=== PATIENT | female | born 1970 | race Caucasian/White ===

== ENCOUNTER 2022-12-24 15:14 | Outpatient (OUT) | payer BC, SELFPAY ==
--- NOTE | 2022-12-24 | XR_ITS ---
The [address] [address] Patient Name: YVONNE CRABTREE MRN: [id number] date: 1970 Sex: F Assigned Patient Location: [facility] Current Patient Location: CT Accession/Order Number: [id number] Exam Date: 12/24/2022 15:22 Report Date: 12/25/2022 15:51 At the request of: VLADIMIR WALDEN Procedure: XR foot RT min 3V STUDY: XR foot RT min 3V, [id number] HISTORY: RIGHT FOOT PAIN COMPARISON: CT of the foot 12/25/2022. 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 Differential includes septic arthritis, rheumatoid arthritis, and atypical posttraumatic changes. Status post bunionectomy. Mild osteoarthritis at the first metatarsophalangeal joint. Small plantar calcaneal spur and mild Achilles insertional calcification. Electronically authenticated by: KELLY NUNEZ Date: 12/25/2022 15:51
== END 2022-12-24 15:15 | disposition home or self-care (01) ==
PROVIDERS: Visit Provider Podiatrist Foot & Ankle Surgery
DX: M79.671 Pain in right foot (principal); M77.31 Calcaneal spur, right foot
CPT/HCPCS: 73630

== ENCOUNTER 2022-12-25 13:45 | Outpatient (OUT) | payer BC, SELFPAY ==
--- NOTE | 2022-12-25 13:49 | CT_ITS ---
The [address] [address] Patient Name: YVONNE CRABTREE MRN: [id number] date: 1970 Sex: F Assigned Patient Location: CT Current Patient Location: Accession/Order Number: [id number] Exam Date: 12/25/2022 14:00 Report Date: 12/26/2022 07:57 At the request of: VLADIMIR WALDEN Procedure: CT foot RT wo con EXAMINATION: CT foot RT wo con HISTORY: Hallux Valgus with Avascular Necrosis, Lisfranc Fracture COMPARISON: No relevant comparison available. TECHNIQUE: Multi-planar CT images were created without and/or with IV contrast according to examination type. Dose reduction techniques were achieved by using automated exposure control and/or adjustment of mA and/or kV according to patient size and/or use of iterative reconstruction technique. FINDINGS: BONES: Prior fracture of base of second metatarsal with majority of the articular surface included with the large inferior corner fracture, and a small amount of the superior aspect of the articular surface remain attached to the metatarsal. Multiple prominent subchondral cysts and adjacent cortical fragments. Degenerative changes at the third tarsal-metatarsal joint with prominent subchondral cysts and multiple small cortical fragments along the distal- dorsal surface of the middle cuneiform. SOFT TISSUES: No appreciable soft tissue swelling or findings to suggest joint capsule thickening. EFFUSION: None visible. OTHER: Negative. CT/CT foot RT wo con IMPRESSION: 1. 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 2. Advanced degenerative changes with numerous subchondral cysts involving the second and third tarsal-metatarsal joints. Infectious etiology is felt less likely. Electronically authenticated by: MARY HILLMAN Date: 12/26/2022 07:57
== END 2022-12-25 13:46 | disposition home or self-care (01) ==
LOC: CT 13:45
PROVIDERS: Visit Provider Podiatrist Foot & Ankle Surgery
DX: M20.11 Hallux valgus (acquired), right foot (principal); M87.9 Osteonecrosis, unspecified; S92.321A Displaced fracture of second metatarsal bone, right foot, initial encounter for closed fracture
CPT/HCPCS: 73700